=== PATIENT | female | born 1995 | race Two or more races ===

== ENCOUNTER 2020-11-15 23:02 | Emergency (ER) | payer OTHER ==
[~2020-11-15] VITALS: Ht 157.5 cm; Wt 56.7 kg
[2020-11-16] MEDS ORDERED: CEPHALEXIN500 M1 PO (00:52)
[2020-11-16] MEDS ORDERED: GARAMYCIN OPHT3.5 GM OP (00:52)
== END 2020-11-16 01:41 | disposition home or self-care (01) ==
LOC: ER 23:02
DX: H01.001 Unspecified blepharitis right upper eyelid (principal)

== ENCOUNTER 2022-09-27 15:06 | Outpatient (CLI) | payer OTHER ==
[~2022-09-27 15:06] MED LIST: CEPHALEXIN500 M1 PO; GARAMYCIN OPHT3.5 GM OP
== END 2022-09-27 16:45 | disposition home or self-care (01) ==
LOC: PRENATAL 15:06
PROVIDERS: ATTEND Obstetrics & Gynecology Maternal & Fetal Medicine
DX: O35.3XX0 Maternal care for (suspected) damage to fetus from viral disease in mother, not applicable or unspecified (principal); O34.219 Maternal care for unspecified type scar from previous cesarean delivery; O36.8199 Decreased fetal movements, unspecified trimester, other fetus; O40.1XX0 Polyhydramnios, first trimester, not applicable or unspecified; Z3A.36 36 weeks gestation of pregnancy